=== PATIENT | male | born 1990 | race Caucasian/White ===

== ENCOUNTER 2016-09-29 09:00 | Emergency (ER) | payer SELFPAY ==
[~2016-09-29 09:00] MED LIST: Lidocaine 1% 20 ML MDV INFILT ONE
--- NOTE | 2016-09-29 12:37 | ER ---
DATE SEEN: 09/29/2016 HISTORY OF PRESENT ILLNESS: The patient is a 26-year-old gentleman, who presents with tooth pain. He feels like he has an abscess. He says he has had throat abscess in the past. This started this morning and has progressively got worse. He does have dental decay and bad teeth. He says he has been to the dentist recently. MEDICATIONS: None. ALLERGIES: No known drug allergies. PAST MEDICAL HISTORY: Drug abuse, drug dependence, and syncope. REVIEW OF SYSTEMS: Constitutionally, no nausea, vomiting, fevers, or chills. PHYSICAL EXAMINATION: VITAL SIGNS: Afebrile. HEENT: His oropharyngeal region is clear. He does have a small abscess on his #17 tooth, his last molar left lower. He has one molar removed and another molar decayed. That is the point of his maximal tenderness. Otherwise, he has full range of motion of his jaw. NECK: Supple. LUNGS: Clear to auscultation. HEART: Regular rhythm. EMERGENCY ROOM COURSE: The patient was injected 1% lidocaine. It is a posterior inferior alveolar block. Also did incise the abscess with a 22-gauge needle and expressed some fluid. The patient had some relief. ASSESSMENT: 1. Tooth decay. 2. Tooth pain. 3. Dental abscess. PLAN: We will start him on amoxicillin 500 mg p.o. t.i.d. for seven days and have him take Tylenol and ibuprofen for pain. Follow up with dentistry. /[id number] REUBEN/JOSEF
== END 2016-09-29 10:26 | disposition home or self-care (01) ==
LOC: FB.ED 09:00
DX: K02.9 Dental caries, unspecified (principal); K04.7 Periapical abscess without sinus
CPT/HCPCS: 41800; 99281; 99283

== ENCOUNTER 2019-05-30 02:09 | Emergency (ER) | payer SELFPAY ==
--- NOTE | 2019-05-30 02:21 | EDM.PDOC ---
ED HPI GENERAL MEDICAL PROBLEM - General Stated Complaint: OD Time Seen by Provider: 05/30/19 02:15 Source of Information: Reports: Patient, EMS History Limitations: Reports: No Limitations - History of Present Illness INITIAL COMMENTS - FREE TEXT/NARRATIVE: 29-year-old male who reports that between 9 and 10 PM last night he injected heroin. He reports he was feeling okay. He then tells me that approximately midnight to 12:30 AM he was going to the bathroom and he lost his balance and fell backwards and hit his head. He reports that he doesn't really remember things very clearly after this and the next thing he remembers is police and a whole bunch of people in his apartment and him not being sure why these people were there. According to EMS personnel as obtained from history of bystanders and the patient's brother, the patient was found on the floor and was unresponsive. They attempted numerous times to awaken him and he would not awaken. He did seem to be breathing and a pulse. They did take ice packs and put them in his armpits and on his neck and face and eventually he did awaken but was very groggy and 911 had been called. When EMS arrived, they found him to be awake but sleepy and his O2 saturations were normal. He did have a tachycardia and they transported him here for evaluation. The patient denied doing any other drugs or alcohol tonight. He is quite sleepy when he arrives and does "nod out" while you are talking to him. He denies any pain at present. Specifically, he has no chest pain, headache, neck pain, abdominal pain or extremity pain. He tells me that he does feel a swollen area on his occiput where he thinks he hit his head but even that is not tender or sensitive he tells me. He is rating his pain as a 0/10. There are no other associated signs or symptoms. There are no other modifying factors. Onset: Other (05/29/2019 at 9-10 PM, this is the time that he used heroin IV.) Duration: Other (No pain) Location: Reports: Other (Not applicable) Quality: Reports: Other (Not applicable) Improves with: Reports: None Worsens with: Reports: None Context: Reports: Other (As above) Associated Symptoms: Reports: No Other Symptoms Treatments CONTROL OPERATOR: Reports: Other (see below) (Nothing) - Related Data Allergies Allergy/AdvReac Type Severity Reaction Status Date / Time No Known Allergies Allergy Verified 09/29/16 09:21 Past Medical History - Past Health History Medical/Surgical History: Denies Medical/Surgical History Neurological History: Reports: Seizure - Past Surgical History HEENT Surgical History: Reports: Adenoidectomy, Oral Surgery, Tonsillectomy, Other (See Below) (Septoplasty) Musculoskeletal Surgical History: Reports: ORIF (Of right wrist. Later he had hardware removal from his right wrist.) Social & Family History - Family History Neurological: Reports: Seizure - Tobacco Use Smoking Status *Q: Current Every Day Smoker - Alcohol Use Alcohol Use History: Yes Alcohol Use Frequency: Socially (He states that he did have some alcohol earlier in the day but that was all face but 2 PM on 05/29/2019.) - Recreational Drug Use Recreational Drug Use: Yes Recreational Drug Type: Reports: Amphetamines (Speed), Heroin, Marijuana/Hashish - Living Situation & Occupation Occupation: Employed (He is a cook at the [employer].) ED ROS GENERAL - Review of Systems Review Of Systems: See Below Constitutional: Reports: No Symptoms HEENT: Reports: No Symptoms Respiratory: Reports: No Symptoms Cardiovascular: Reports: No Symptoms GI/Abdominal: Reports: No Symptoms : Reports: No Symptoms Musculoskeletal: Reports: No Symptoms Skin: Reports: No Symptoms Neurological: Reports: No Symptoms Hematologic/Lymphatic: Reports: No Symptoms Immunologic: Reports: No Symptoms - Physical Exam Exam: See Below Exam Limited By: No Limitations General Appearance: WD/WN, No Apparent Distress, Lethargic Eye Exam: Bilateral Eye: EOMI, Normal Inspection, PERRL Ears: Normal External Exam, Hearing Grossly Normal Nose: Normal Inspection, Normal Mucosa, No Blood Throat/Mouth: Normal Lips, Normal Oropharynx, Normal Voice, No Airway Compromise Head Exam: Normocephalic, Scalp Tenderness (And mild swelling in his occiput. There is no crepitus or bony deformity.) Neck: Normal Inspection, Supple, Non-Tender, Full Range of Motion Respiratory/Chest: No Respiratory Distress, Lungs Clear, Normal Breath Sounds, No Accessory Muscle Use, Chest Non-Tender Cardiovascular: Normal Peripheral Pulses, No JVD, Tachycardia GI/Abdominal: Normal Bowel Sounds, Soft, Non-Tender, No Mass Neuro Exam (Abbreviated): Oriented, CN II-XII Intact, Normal Cognition, No Motor /Sensory Deficits, Slow to Respond (And lethargic but he is oriented to person, place, time and situation) Back Exam: Normal Inspection Extremities: Normal Inspection, Normal Range of Motion, Non-Tender, No Pedal Edema, Normal Capillary Refill Skin Exam: Warm, Dry, Intact, Normal Color, No Rash Course - Vital Signs Last Recorded V/S: Last Vital Signs Temp 36.7 C 05/30/19 02:09 Pulse 118 H 05/30/19 02:09 Resp 10 L 05/30/19 02:09 BP 159/101 H 05/30/19 02:09 Pulse Ox 94 L 05/30/19 02:09 - Orders/Labs/Meds Orders: Active Orders 24 hr Category Date Time Status EKG Documentation Completion [RC] ASDIRECTED Care 05/30/19 02:35 Active Cervical Spine wo Cont [CT] Stat Exams 05/30/19 02:34 Ordered Head wo Cont [CT] Stat Exams 05/30/19 02:34 Ordered CBC WITH AUTO DIFF [HEME] Stat Lab 05/30/19 02:34 Ordered COMPREHENSIVE METABOLIC PN,CMP [CHEM] Stat Lab 05/30/19 02:34 Ordered DRUG SCREEN, URINE ALERE [URCHEM] Stat Lab 05/30/19 02:34 Ordered ETHANOL BLOOD MEDICAL [CHEM] Stat Lab 05/30/19 02:34 Ordered MAGNESIUM [CHEM] Stat Lab 05/30/19 02:34 Ordered Sodium Chloride 0.9% [Normal Saline] 1,000 ml Med 05/30/19 02:45 Active IV ASDIRECTED Sodium Chloride 0.9% [Saline Flush] Med 05/30/19 02:34 Active 10 ml FLUSH ASDIRECTED PRN Peripheral IV Insertion Adult [OM.PC] Routine Oth 05/30/19 02:34 Ordered EKG 12 Lead [EK] Routine Ther 05/30/19 02:34 Ordered Medication Orders Sodium Chloride (Normal Saline) 1,000 mls @ 999 mls/hr IV ASDIRECTED JANAY Last Admin: 05/30/19 02:35 Dose: 999 mls/hr Sodium Chloride (Saline Flush) 10 ml FLUSH ASDIRECTED PRN PRN Reason: Keep Vein Open Last Admin: 05/30/19 02:39 Dose: 10 ml Meds: Medications Generic Name Dose Route Start Last Admin Trade Name Freq PRN Reason Stop Dose Admin Sodium Chloride 1,000 mls @ 999 mls/hr 05/30/19 02:45 05/30/19 02:35 Normal Saline IV 999 mls/hr ASDIRECTED JANAY Administration Sodium Chloride 10 ml 05/30/19 02:34 05/30/19 02:39 Saline Flush FLUSH 10 ml ASDIRECTED PRN Administration Keep Vein Open Discontinued Medications Generic Name Dose Route Start Last Admin Trade Name Shira PRN Reason Stop Dose Admin Naloxone HCl 0.4 mg 05/30/19 02:24 05/30/19 02:30 Narcan IVPUSH 0.4 mg ONETIME PRN Administration Oversedation Ondansetron HCl 4 mg 05/30/19 02:36 05/30/19 02:41 Zofran IVPUSH 05/30/19 02:37 4 mg ONETIME ONE Administration - Re-Assessments/Exams Free Text/Narrative Re-Assessment/Exam: 05/30/19 02:30: The patient was given Narcan 4 mg IV. Following this, the patient became more awake and alert. He had been oriented to person, place, time and situation and he remains so but he was less drowsy and he did not fall asleep when I was talking to him at this point. He did have some mild nausea at this point and he was given Zofran 4 mg IV and a normal saline IV fluid bolus was initiated. Because of the patient's fall with head injury and his somewhat prolonged altered mental status after the reported time that he used IV heroin, I did order blood tests, EKG and CT scans of his head and neck. Lab was in the room and attempting to draw blood and he refused at this point and asked to speak to me. He is still any at this point that he does not want to have any of this testing done. Specifically, he does not want any blood testing, he does not want an EKG performed and he does not want any CT scans to be performed as well. He is requesting to sign out AGAINST MEDICAL ADVICE to go home. I did just give the patient Narcan 0.4 mg IV. I have discussed the risk associated with signing out. I also was able to convince him to allow me to at least watch him for an hour post Narcan admission. He did agree to this. 02/08/20 03:30: Patient remains awake and alert. He is still tachycardic. He is oriented to person, place, time and situation. I have once again explained to him the risk of leaving and that leaving he would be doing so AGAINST MEDICAL ADVICE. He tells me that he will be leaving despite the risk associated. 05/30/19 03:45: The patient was going to go home by taxi. However, his brother is coming to pick him up now. The patient is still leaving AGAINST MEDICAL ADVICE. Departure - Departure Time of Disposition: 03:34 Disposition: Against Medical Advice 07 Condition: Undetermined Clinical Impression: Overdose of illicit drug, Heroin abuse, Tachycardia - Discharge Information Referrals: Hakan Slaughter MD [Primary Care Provider] - Sepsis Event Note - Focused Exam Vital Signs: Vital Signs Temp Pulse Resp BP Pulse Ox 05/30/19 02:09 36.7 C 118 H 10 L 159/101 H 94 L Date Exam was Performed: 05/30/19 Time Exam was Performed: 03:18 - My Orders Last 24 Hours: My Active Orders 05/30/19 02:34 Cervical Spine wo Cont [CT] Stat Head wo Cont [CT] Stat CBC WITH AUTO DIFF [HEME] Stat COMPREHENSIVE METABOLIC PN,CMP [CHEM] Stat DRUG SCREEN, URINE ALERE [URCHEM] Stat ETHANOL BLOOD MEDICAL [CHEM] Stat MAGNESIUM [CHEM] Stat Sodium Chloride 0.9% [Saline Flush] 10 ml FLUSH ASDIRECTED PRN Peripheral IV Insertion Adult [OM.PC] Routine EKG 12 Lead [EK] Routine 05/30/19 02:35 EKG Documentation Completion [RC] ASDIRECTED 05/30/19 02:45 Sodium Chloride 0.9% [Normal Saline] 1,000 ml IV ASDIRECTED - Assessment/Plan Last 24 Hours: My Active Orders 05/30/19 02:34 Cervical Spine wo Cont [CT] Stat Head wo Cont [CT] Stat CBC WITH AUTO DIFF [HEME] Stat COMPREHENSIVE METABOLIC PN,CMP [CHEM] Stat DRUG SCREEN, URINE ALERE [URCHEM] Stat ETHANOL BLOOD MEDICAL [CHEM] Stat MAGNESIUM [CHEM] Stat Sodium Chloride 0.9% [Saline Flush] 10 ml FLUSH ASDIRECTED PRN Peripheral IV Insertion Adult [OM.PC] Routine EKG 12 Lead [EK] Routine 05/30/19 02:35 EKG Documentation Completion [RC] ASDIRECTED 05/30/19 02:45 Sodium Chloride 0.9% [Normal Saline] 1,000 ml IV ASDIRECTED
[2019-05-30] MEDS ORDERED: Naloxone 0.4 MG/ML SDV IVPUSH PRN (02:24)
[2019-05-30] MEDS ORDERED: Sodium Chloride 0.9% 10 ML Syringe FLUSH PRN (02:34)
[2019-05-30] MEDS ORDERED: Ondansetron 4 MG/2 ML SDV IVPUSH ONE (02:36)
[2019-05-30] MEDS ORDERED: Sodium Chloride 0.9% 1,000 ML IV SCH (02:45)
[2019-05-30 02:59] VITALS: BP 159/101; PULSE 118
== END 2019-05-30 04:05 | disposition left against medical advice (07) ==
LOC: FB.ED 02:09
DX: T40.1X1A Poisoning by heroin, accidental (unintentional), initial encounter (principal); R00.0 Tachycardia, unspecified; F11.10 Opioid abuse, uncomplicated; F17.200 Nicotine dependence, unspecified, uncomplicated
CPT/HCPCS: 96361; 96374; 96375; 99284; J2310; J2405; J7030

== ENCOUNTER 2019-07-03 13:07 | Emergency (ER) | payer MEDICAID, OTHER ==
--- NOTE | 2019-07-03 14:29 | EDM.PDOC ---
ED HPI GENERAL MEDICAL PROBLEM - General Chief Complaint: Neurological Problem Stated Complaint: SEIZURE Time Seen by Provider: 07/03/19 13:40 Source of Information: Reports: Patient History Limitations: Reports: No Limitations - History of Present Illness INITIAL COMMENTS - FREE TEXT/NARRATIVE: Patient presented to the ED because of a seizure episode inside the car. His girlfriend was driving whe she noticed him having generalized body jerking and wyeball rolling. He was unresponsive for 2-3 minutes. He has a history of SZ as a child but is not taking any anti sz meds at this time. - Related Data Allergies Allergy/AdvReac Type Severity Reaction Status Date / Time No Known Allergies Allergy Verified 07/03/19 13:33 Home Meds: Home Meds NK [No Known Home Meds] 07/03/19 [History] Past Medical History - Past Health History Medical/Surgical History: Denies Medical/Surgical History Neurological History: Reports: Seizure Psychiatric History: Reports: None Hematologic History: Reports: None Immunologic History: Reports: None Oncologic (Cancer) History: Reports: None Dermatologic History: Reports: None - Past Surgical History HEENT Surgical History: Reports: Adenoidectomy, Oral Surgery, Tonsillectomy, Other (See Below) Musculoskeletal Surgical History: Reports: ORIF Social & Family History - Family History Family Medical History: Noncontributory Neurological: Reports: Seizure - Tobacco Use Smoking Status *Q: Current Every Day Smoker Years of Tobacco use: 10 Packs/Tins Daily: 0.5 Used Tobacco, but Quit: No - Living Situation & Occupation 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 GENERAL - Review of Systems Review Of Systems: See Below Constitutional: Reports: No Symptoms HEENT: Reports: No Symptoms Respiratory: Reports: No Symptoms Cardiovascular: Reports: No Symptoms Endocrine: Reports: No Symptoms GI/Abdominal: Reports: No Symptoms : Reports: No Symptoms Musculoskeletal: Reports: No Symptoms Skin: Reports: No Symptoms Neurological: Reports: Seizure Psychiatric: Reports: No Symptoms Hematologic/Lymphatic: Reports: No Symptoms - Physical Exam Exam: See Below Exam Limited By: No Limitations General Appearance: Alert, No Apparent Distress Ears: Normal External Exam, Normal Canal, Hearing Grossly Normal Nose: Normal Inspection, Normal Mucosa Throat/Mouth: Normal Inspection, Normal Lips, Normal Teeth Head Exam: Atraumatic, Normocephalic Neck: Normal Inspection, Supple, Non-Tender, Full Range of Motion Respiratory/Chest: No Respiratory Distress, Lungs Clear, Normal Breath Sounds, No Accessory Muscle Use, Chest Non-Tender Cardiovascular: Normal Peripheral Pulses, Regular Rate, Rhythm, No Edema GI/Abdominal: Normal Bowel Sounds, Soft, Non-Tender, No Organomegaly Rectal (Males) Exam: Normal Exam, Normal Rectal Tone Neuro Exam (Abbreviated): Alert, CN II-XII Intact Course - Vital Signs Text/Narrative:: Labs reviewed and discussed with patient and verbalized full understanding His SZ is related to substance abuse his drug screen is positive for THC, Amphetamine, MDMA Last Recorded V/S: Last Vital Signs Temp 36.4 C 07/03/19 14:10 Pulse 103 H 07/03/19 14:10 Resp 20 07/03/19 14:10 BP 129/79 07/03/19 14:10 Pulse Ox 100 07/03/19 14:10 - Orders/Labs/Meds Labs: Laboratory Tests 07/03/19 07/03/19 07/03/19 Range/Units 13:30 13:30 13:30 WBC 8.9 (4.5-12.0) X10-3/uL RBC 5.40 (4.30-5.75) x10(6)uL Hgb 16.4 (13.5-17.8) g/dL Hct 48.8 (30.0-51.3) % MCV 90.4 (80-96) fL MCH 30.4 (27.7-33.6) pg MCHC 33.7 (32.2-35.4) g/dL RDW 11.7 (11.5-15.5) % Plt Count 446 H (125-369) X10(3)uL MPV 7.2 L (7.4-10.4) fL Neut % (Auto) 65.2 (46-82) % Lymph % (Auto) 24.7 (13-37) % [place] % (Auto) 7.5 (4-12) % Eos % (Auto) 2 (1.0-5.0) % Baso % (Auto) 1 (0-2) % Neut # (Auto) 5.7 (1.6-8.3) # Lymph # (Auto) 2.2 (0.6-5.0) # Hardee # (Auto) 0.7 (0.0-1.3) # Eos # (Auto) 0.2 (0.0-0.8) # Baso # (Auto) 0.1 (0.0-0.2) # Sodium 140 (135-145) mmol/L Potassium 4.3 (3.5-5.3) mmol/L Chloride 103 (100-110) mmol/L Carbon Dioxide 25 (21-32) mmol/L BUN 9 (7-18) mg/dL Creatinine 1.0 (0.70-1.30) mg/dL Est Cr Clr Drug Dosing 106.40 mL/min Estimated GFR (MDRD) > 60 (>60) BUN/Creatinine Ratio 9.0 (9-20) Glucose 97 (80-116) mg/dL Calcium 8.8 (8.6-10.2) mg/dL Urine Opiates Screen (NEGATIVE) Ur Oxycodone Screen (NEGATIVE) Ur Propoxyphene Screen (NEGATIVE) Ur Barbituates Screen (NEGATIVE) Ur Tricyclics Screen (NEGATIVE) Ur Phencyclidine Scrn (NEGATIVE) Ur Amphetamine Screen (NEGATIVE) Urine MDMA Screen (NEGATIVE) U Benzodiazepines Scrn (NEGATIVE) U Cocaine Metab Screen (NEGATIVE) U Marijuana (THC) Screen (NEGATIVE) Ethyl Alcohol < 0.03 (<0.03) % 07/03/19 Range/Units 13:40 WBC (4.5-12.0) X10-3/uL RBC (4.30-5.75) x10(6)uL Hgb (13.5-17.8) g/dL Hct (30.0-51.3) % MCV (80-96) fL MCH (27.7-33.6) pg MCHC (32.2-35.4) g/dL RDW (11.5-15.5) % Plt Count (125-369) X10(3)uL MPV (7.4-10.4) fL Neut % (Auto) (46-82) % Lymph % (Auto) (13-37) % [place] % (Auto) (4-12) % Eos % (Auto) (1.0-5.0) % Baso % (Auto) (0-2) % Neut # (Auto) (1.6-8.3) # Lymph # (Auto) (0.6-5.0) # Hardee # (Auto) (0.0-1.3) # Eos # (Auto) (0.0-0.8) # Baso # (Auto) (0.0-0.2) # Sodium (135-145) mmol/L Potassium (3.5-5.3) mmol/L Chloride (100-110) mmol/L Carbon Dioxide (21-32) mmol/L BUN (7-18) mg/dL Creatinine (0.70-1.30) mg/dL Est Cr Clr Drug Dosing mL/min Estimated GFR (MDRD) (>60) BUN/Creatinine Ratio (9-20) Glucose (80-116) mg/dL Calcium (8.6-10.2) mg/dL Urine Opiates Screen Negative (NEGATIVE) Ur Oxycodone Screen Negative (NEGATIVE) Ur Propoxyphene Screen Negative (NEGATIVE) Ur Barbituates Screen Negative (NEGATIVE) Ur Tricyclics Screen Negative (NEGATIVE) Ur Phencyclidine Scrn Negative (NEGATIVE) Ur Amphetamine Screen Positive H (NEGATIVE) Urine MDMA Screen Positive H (NEGATIVE) U Benzodiazepines Scrn Negative (NEGATIVE) U Cocaine Metab Screen Negative (NEGATIVE) U Marijuana (THC) Screen Positive H (NEGATIVE) Ethyl Alcohol (<0.03) % Departure - Departure Time of Disposition: 14:30 Disposition: Home, Self-Care 01 Condition: Good Clinical Impression: Seizure, Substance abuse - Discharge Information Instructions: Substance Use Disorder, Seizure, Adult, [place] Referrals: Hakan Slaughter MD [Primary Care Provider] - Forms: ED Department Discharge Additional Instructions: Your substance abuse disorder is causing you to have seizure Quit using street drugs follow up with your doctor so you can be referred for an outpatient chemical dependency treatment Sepsis Event Note - Focused Exam Date Exam was Performed: 07/05/19 Time Exam was Performed: 16:10
[2019-07-03 14:33] VITALS: BP 129/79; PULSE 103
== END 2019-07-03 14:40 | disposition home or self-care (01) ==
LOC: FB.ED 13:07
DX: R56.9 Unspecified convulsions (principal); F15.10 Other stimulant abuse, uncomplicated; F12.10 Cannabis abuse, uncomplicated; F17.210 Nicotine dependence, cigarettes, uncomplicated; Z98.890 Other specified postprocedural states
CPT/HCPCS: 36415; 80048; 80305-QW; 80307; 85025; 99284

== ENCOUNTER 2020-03-29 00:38 | Emergency (ER) | payer MEDICAID ==
[2020-03-29 01:00] VITALS: BP 138/81; PULSE 107
[2020-03-29] MEDS ORDERED: cefTRIAXone 1 GM Vial IM ONE (01:57)
[2020-03-29] MEDS ORDERED: Azithromycin 500 MG Tab PO ONE (01:58)
[2020-03-29] MEDS ORDERED: Dexamethasone 4 MG/ML 5 ML MDV IM ONE (01:58)
--- NOTE | 2020-03-29 02:05 | EDM.PDOC ---
ED HPI GENERAL MEDICAL PROBLEM - General Chief Complaint: General Stated Complaint: EVAL Time Seen by Provider: 03/29/20 01:45 Source of Information: Reports: Patient History Limitations: Reports: No Limitations - History of Present Illness INITIAL COMMENTS - FREE TEXT/NARRATIVE: brought in by law enforcement being taken to retirement and getting clearance states he tested positive in [facility] on 03/23 for COVID ( his sister/ brother was positive) has cough and tightness in the chest NO fever or chills noted Onset: Gradual Onset Date: 03/23/20 Duration: Day(s):, Waxing/Waning Location: Reports: Chest Quality: Reports: Ache Severity: Moderate Improves with: Reports: None Worsens with: Reports: Breathing, Movement Context: Reports: Activity Associated Symptoms: Reports: Cough, Diaphoresis, Fever/Chills bilateral wrist Pain Score (Numeric/FACES): 8 - Related Data Allergies Allergy/AdvReac Type Severity Reaction Status Date / Time No Known Allergies Allergy Verified 07/03/19 13:33 Home Meds: Home Meds Albuterol Sulfate [Albuterol Sulfate Hfa] 8.5 gm IH Q4HR PRN #1 hfa.aer.ad 03/29/20 [Rx] Azithromycin [Zithromax] 500 mg PO DAILY #5 tab 03/29/20 [Rx] dexAMETHasone [Dexamethasone] 4 mg PO BID #20 tablet 03/29/20 [Rx] guaiFENesin [Mucus Relief ER] 600 mg PO BID #20 tab.er.12h 03/29/20 [Rx] Past Medical History - Past Health History Medical/Surgical History: Denies Medical/Surgical History Respiratory History: Reports: Other (See Below) Other Respiratory History: smoker for 10 years. Neurological History: Reports: Seizure Psychiatric History: Reports: None Hematologic History: Reports: None Immunologic History: Reports: None Oncologic (Cancer) History: Reports: None Dermatologic History: Reports: None - Past Surgical History HEENT Surgical History: Reports: Adenoidectomy, Oral Surgery, Tonsillectomy, Other (See Below) Other HEENT Surgeries/Procedures: tooth removed 01/04/2016 Musculoskeletal Surgical History: Reports: ORIF Social & Family History - Family History Family Medical History: No Pertinent Family History Neurological: Reports: Seizure - Tobacco Use Tobacco Use Status *Q: Current Every Day Tobacco User Years of Tobacco use: 10 Packs/Tins Daily: 0.5 Second Hand Smoke Exposure: Yes - Caffeine Use Caffeine Use: Reports: Coffee, Soda - Living Situation & Occupation 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 GENERAL - Review of Systems Review Of Systems: See Below Constitutional: Reports: Fever, Chills, Malaise, Weakness HEENT: Reports: No Symptoms Respiratory: Reports: Shortness of Breath, Cough, Sputum Cardiovascular: Reports: No Symptoms Endocrine: Reports: No Symptoms GI/Abdominal: Reports: No Symptoms : Reports: No Symptoms Musculoskeletal: Reports: No Symptoms Skin: Reports: No Symptoms Neurological: Reports: No Symptoms Psychiatric: Reports: No Symptoms Hematologic/Lymphatic: Reports: No Symptoms ED EXAM, GENERAL - Physical Exam Exam: See Below Exam Limited By: No Limitations General Appearance: Alert, WD/WN, No Apparent Distress Eye Exam: Bilateral Eye: EOMI Ears: Normal External Exam Nose: Normal Inspection Throat/Mouth: Normal Inspection, Normal Oropharynx Head: Atraumatic, Normocephalic Neck: Supple, Non-Tender Respiratory/Chest: Decreased Breath Sounds, Crackles, Rales Cardiovascular: Normal Peripheral Pulses, Regular Rate, Rhythm Course - Vital Signs Last Recorded V/S: Last Vital Signs Temp Pulse 107 H 03/29/20 00:50 Resp 17 03/29/20 00:50 BP 138/81 03/29/20 00:50 Pulse Ox 100 03/29/20 00:50 - Orders/Labs/Meds Labs: Laboratory Tests 03/29/20 Range/Units 00:48 SARS-CoV-2 RNA (GOLD) Negative (NEGATIVE) Meds: Medications Discontinued Medications Generic Name Dose Route Start Last Admin Trade Name Shira PRN Reason Stop Dose Admin Azithromycin 500 mg 03/29/20 01:58 03/29/20 02:03 Zithromax PO 03/29/20 01:59 500 mg ONETIME ONE Administration Ceftriaxone Sodium 1 gm 03/29/20 01:57 03/29/20 02:02 Rocephin IM 03/29/20 01:58 1 gm ONETIME ONE Administration Dexamethasone 8 mg 03/29/20 01:58 03/29/20 02:02 Dexamethasone IM 03/29/20 01:59 8 mg ONETIME ONE Administration - Re-Assessments/Exams Free Text/Narrative Re-Assessment/Exam: 03/29/20 02:05 COVID test : negative Pt insisted he had a positive test Recommened he have CT chest to conform findings in his lungs Police states state will not pay for CT scan and pt states he has no insurance to get the scan I suggested a chest Xray Pt states he had no insurance and could not afford the chest xray Officer state pt is lying in order to get out of going to [facility] I went [facility] and offered him antibioitcs ( bronchitis and possible pnuemonia) and Decadron for treatment which both parties agreed to Departure - Departure Time of Disposition: 02:15 Disposition: Home, Self-Care 01 Condition: Fair Clinical Impression: Bronchitis, Cough productive of purulent sputum - Discharge Information *PRESCRIPTION DRUG MONITORING PROGRAM REVIEWED*: Not Applicable *COPY OF PRESCRIPTION DRUG MONITORING REPORT IN PATIENT FOREIGN: Not Applicable Prescriptions: Albuterol Sulfate [Albuterol Sulfate Hfa] 8.5 gm IH Q4HR PRN #1 hfa.aer.ad PRN Reason: Cough dexAMETHasone [Dexamethasone] 4 mg PO BID #20 tablet guaiFENesin [Mucus Relief ER] 600 mg PO BID #20 tab.er.12h Azithromycin [Zithromax] 500 mg PO DAILY #5 tab Instructions: Cough, Adult, [id number] Referrals: PCP,None [Primary Care Provider] - Forms: ED Department Discharge Additional Instructions: treat as possible pneumonia take full course of antibiotics and inhaler Sepsis Event Note (ED) - Evaluation Sepsis Screening Result: No Definite Risk - Focused Exam Vital Signs: Vital Signs Pulse Resp BP Pulse Ox 03/29/20 00:50 107 H 17 138/81 100
== END 2020-03-29 02:22 | disposition home or self-care (01) ==
LOC: FB.ED 00:38
DX: J40 Bronchitis, not specified as acute or chronic (principal); Z20.828 Contact with and (suspected) exposure to other viral communicable diseases; F17.210 Nicotine dependence, cigarettes, uncomplicated; Z90.49 Acquired absence of other specified parts of digestive tract
CPT/HCPCS: 87635; 96372; 99283; A9270; J0696; J1100; U0002